=== PATIENT | male | born 1950 | race African-American/Black ===

== ENCOUNTER 2020-03-12 10:57 | Emergency (ER) | payer MEDICARE, MEDICAID ==
[~2020-03-12] VITALS: Ht 177.8 cm; Wt 112.7 kg
[~2020-03-12 10:57] MED LIST: ASPI-1265 PO; ATOR40TA PO; DOCU250C96 PO; FURO-149 PO; LISI10TA4 PO; METF850T PO; OLAN10TA19 PO; RISP0.5T3 PO
[2020-03-12 10:59] VITALS: BP 188/82
--- NOTE | 2020-03-12 11:26 | NUR ---
PT CAME IN TO GET REFILL ON MEDACATIONS NORCO 5/325 IBU 400MG CLINDAMYCIN 300MG
[2020-03-12] MEDS ORDERED: HYDROcodone/acetaminophen 5mg/325mg tablet PO ONE (11:55)
[2020-03-12] MEDS ORDERED: HYDR-3965 PO (11:59)
== END 2020-03-12 12:44 | disposition home or self-care (01) ==
LOC: ER 10:58
DX: K08.89 Other specified disorders of teeth and supporting structures (principal); I25.10 Atherosclerotic heart disease of native coronary artery without angina pectoris; I25.2 Old myocardial infarction; J44.9 Chronic obstructive pulmonary disease, unspecified; E11.9 Type 2 diabetes mellitus without complications; Z86.73 Personal history of transient ischemic attack (TIA), and cerebral infarction without residual deficits; Z98.890 Other specified postprocedural states; Z56.0 Unemployment, unspecified; Z60.2 Problems related to living alone; Z88.2 Allergy status to sulfonamides; Z88.5 Allergy status to narcotic agent; Z88.6 Allergy status to analgesic agent; Z88.8 Allergy status to other drugs, medicaments and biological substances; Z79.82 Long term (current) use of aspirin; Z79.899 Other long term (current) drug therapy; Z76.0 Encounter for issue of repeat prescription
CPT/HCPCS: 99281

== ENCOUNTER 2021-05-25 14:31 | Emergency (ER) | payer BC, MEDICAID ==
[~2021-05-25] VITALS: Ht 172.7 cm; Wt 100.0 kg
[~2021-05-25 14:31] MED LIST changes: +LISI10TA27 PO; -LISI10TA4 PO; -OLAN10TA19 PO; +OLAN10TA73 PO; -RISP0.5T3 PO; +RISP0.5T65 PO
[2021-05-25 14:40] VITALS: BP 138/103
[2021-05-25] MEDS ORDERED: LANTUS SQ (15:28)
[2021-05-25] MEDS ORDERED: METF-516 PO (15:28)
== END 2021-05-25 15:43 | disposition home or self-care (01) ==
LOC: ER 14:31
DX: E11.65 Type 2 diabetes mellitus with hyperglycemia (principal); I25.10 Atherosclerotic heart disease of native coronary artery without angina pectoris; I25.2 Old myocardial infarction; J44.9 Chronic obstructive pulmonary disease, unspecified; Z76.0 Encounter for issue of repeat prescription; Z86.73 Personal history of transient ischemic attack (TIA), and cerebral infarction without residual deficits; Z98.890 Other specified postprocedural states; Z60.2 Problems related to living alone; Z56.0 Unemployment, unspecified; Z91.011 Allergy to milk products; Z88.2 Allergy status to sulfonamides; Z88.0 Allergy status to penicillin; Z88.5 Allergy status to narcotic agent; Z88.8 Allergy status to other drugs, medicaments and biological substances; Z79.82 Long term (current) use of aspirin; Z79.4 Long term (current) use of insulin; Z79.899 Other long term (current) drug therapy
CPT/HCPCS: 82948; 99283

== ENCOUNTER 2021-11-21 11:13 | Inpatient (IN) | payer OTHER, BC, MEDICAID ==
[~2021-11-21] VITALS: Ht 177.8 cm; Wt 104.4 kg
[~2021-11-21 11:13] MED LIST changes: +METF-516 PO
[2021-11-21 11:58] LABS: BASOPHILS # (AUTO) 0.1 X10'3 (0-0.2); BASOPHILS % (AUTO) 1.2 % (0-1); EOSINOPHILS % (AUTO) 0.2 % (0-6); HEMATOCRIT 48.8 % (42.0-52.0); LYMPHOCYTES # (AUTO) 0.3 X10'3 (1.1-4.8); LYMPHOCYTES % (AUTO) 6.8 % (21-51); MEAN CORPUSCULAR HEMOGLOBIN 29.1 PG (27.0-31.0); MEAN CORPUSCULAR HGB CONC 32.8 g/dL (33.0-36.5); MEAN CORPUSCULAR VOLUME 88.7 FL (78-98); MEAN PLATELET VOLUME 9.4 FL (7.4-10.4); MONOCYTES % (AUTO) 21.8 % (2-12); NEUTROPHILS # (AUTO) 3.2 X10'3 (1.8-7.7); PLATELET COUNT 198 X10'3 (140-440); RED CELL DISTRIBUTION WIDTH 13.3 % (11.5-14.5); WHITE BLOOD COUNT 4.5 X10'3 (4.5-11.0)
[2021-11-21 12:16] LABS: ALANINE AMINOTRANSFERASE 14 U/L (12-78); ALKALINE PHOSPHATASE 128 IU/L (46-116); ANION GAP 9 (8-16); ASPARTATE AMINO TRANSFERASE 15 U/L (10-37); BILIRUBIN,TOTAL 0.4 MG/DL (0.1-1.0); BLOOD UREA NITROGEN 13 MG/DL (7-18); BUN/CREATININE RATIO 10.1 (5.4-32.0); CHLORIDE 106 MMOL/L (99-107); CREATININE 1.29 MG/DL (0.60-1.10); GLUCOSE 142 MG/DL (70-104); POTASSIUM 3.5 MMOL/L (3.5-5.1); SODIUM 144 MMOL/L (135-145); TOTAL CARBON DIOXIDE 29.4 MMOL/L (24-32); eGFR 66 ML/MIN
[2021-11-21 12:44] LABS: PLATELET ESTIMATE NORMAL; TOTAL CELLS COUNTED 100
[2021-11-21] MEDS ORDERED: metoprolol tartrate 1mg/ml inj IV ONE ×2 (14:00→19:05)
[2021-11-21] MEDS ORDERED: HYDROcodone/acetaminophen 5mg/325mg tablet PO PRN (15:00)
[2021-11-21] MEDS ORDERED: morphine 2 MG/ML inj. syringe IV PRN (15:00)
[2021-11-21] MEDS ORDERED: potassium CL 10mEq/100ml bag 100 ML IV PRN (15:00)
[2021-11-21] MEDS ORDERED: POTASSIUM BICARB 20meq eff tab 20 MEQ TABLET.EFF PO PRN ×2 (15:00)
[2021-11-21] MEDS ORDERED: magnesium 4gm in 100ml NS 100 ML IV PRN (15:00)
[2021-11-21] MEDS ORDERED: magnesium 2GM in 50ml NS 50 ML IV PRN (15:00)
[2021-11-21] MEDS ORDERED: magnesium Cl slow-release 64mg tablet PO PRN (15:00)
[2021-11-21 15:41] LABS: MAGNESIUM 1.6 MG/DL (1.5-2.4)
--- NOTE | 2021-11-21 15:42 | NUR ---
Multiple unsuccesful attempts at IV access. Ultrasound IV requested.
[2021-11-21 15:43] LABS: POTASSIUM 3.4 MMOL/L (3.5-5.1)
[2021-11-21] MEDS: normal saline 1000ml 1,000 ML IV SCH (16:09)
--- NOTE | 2021-11-21 19:16 | NUR ---
Patient had elevated blood pressure coming on shift. Dr. Patel notified and given order for IV push of Lopressor.
[2021-11-21 19:37] VITALS: BP 173/93
[2021-11-21] MEDS: K and/or MAG REPLACEMENT MC SCH (20:00)
[2021-11-21] MEDS: docusate sod 100mg capsule PO SCH (20:58)
[2021-11-21 22:00] VITALS: BP 164/94
[2021-11-22] MEDS: normal saline 1000ml 1,000 ML IV SCH ×3 (01:03→19:35)
[2021-11-22 02:00] VITALS: BP 182/93
[2021-11-22] MEDS ORDERED: hydrALAZINE 20mg/ml inj. IV PRN (02:45)
--- NOTE | 2021-11-22 02:47 | NUR ---
Patient resting quietly, 0200 BP 182/93, denies s/s. Patient received Lopressor 5mg IVP x2 in ED for HTN. No PRN meds ordered for blood pressure. RN contacted Dr Patel and order received for PRN hydralazine for SBP >170 DBP >100. Order entered.
[2021-11-22 06:00] VITALS: BP 151/77
--- NOTE | 2021-11-22 06:41 | NUR ---
Patient in room PCU 3023. I have received report from SUNITHA Jay and had the opportunity to ask questions and assume patient care.
[2021-11-22 06:46] LABS: EOSINOPHILS % (AUTO) 0 % (0-6); HEMATOCRIT 47.2 % (42.0-52.0); HEMOGLOBIN 15.7 g/dl (14.0-17.9); MEAN CORPUSCULAR HEMOGLOBIN 29.8 PG (27.0-31.0); MEAN CORPUSCULAR HGB CONC 33.2 g/dL (33.0-36.5); MEAN CORPUSCULAR VOLUME 89.5 FL (78-98); MEAN PLATELET VOLUME 9.4 FL (7.4-10.4); MONOCYTES # (AUTO) 0.8 X10'3 (0-0.9); MONOCYTES % (AUTO) 28.6 % (2-12); NEUTROPHILS % (AUTO) 34.4 % (42-75); PLATELET COUNT 156 X10'3 (140-440); RED BLOOD COUNT 5.27 X10'6 (4.70-6.10); RED CELL DISTRIBUTION WIDTH 13.4 % (11.5-14.5); WHITE BLOOD COUNT 2.8 X10'3 (4.5-11.0)
[2021-11-22 06:56] LABS: ALBUMIN 3.2 G/DL (3.4-5.0); ANION GAP 14 (8-16); BLOOD UREA NITROGEN 14 MG/DL (7-18); BUN/CREATININE RATIO 13.2 (5.4-32.0); CALCIUM 8.4 MG/DL (8.5-10.1); CHLORIDE 108 MMOL/L (99-107); CREATININE 1.06 MG/DL (0.60-1.10); GLUCOSE 109 MG/DL (70-104); MAGNESIUM 1.7 MG/DL (1.5-2.4); POTASSIUM 3.7 MMOL/L (3.5-5.1); SODIUM 144 MMOL/L (135-145); TOTAL CARBON DIOXIDE 22.2 MMOL/L (24-32); eGFR 83 ML/MIN
[2021-11-22 07:40] LABS: PLATELET ESTIMATE NORMAL; TOTAL CELLS COUNTED 100
[2021-11-22] MEDS: K and/or MAG REPLACEMENT MC SCH ×2 (08:00→19:03)
[2021-11-22 08:31] LABS: HEMOGLOBIN A1C 7.2 % (4.5-6.2)
[2021-11-22] MEDS: docusate sod 100mg capsule PO SCH ×2 (09:17→19:31)
[2021-11-22 11:00] VITALS: BP 166/79
[2021-11-22] MEDS: atorvastatin 20mg tablet PO SCH (12:02)
[2021-11-22] MEDS: lisinopril 10 MG tablet PO SCH (12:03)
[2021-11-22 15:00] VITALS: BP 162/94
[2021-11-22 18:00] VITALS: BP 158/93
--- NOTE | 2021-11-22 18:11 | NUR ---
Problems reprioritized. Patient report given, questions answered & plan of care reviewed with SUNITHA Jay.
[2021-11-22] MEDS: OLANZapine 2.5MG tablet PO SCH (19:32)
[2021-11-22 22:00] VITALS: BP 134/92
[2021-11-23 02:00] VITALS: BP 155/94
--- NOTE | 2021-11-23 04:53 | NUR ---
Per cable television installer patient had 19 beats VTach, patient currently sleeping and in no distress. Dr Patel contacted and order for magnesium oxide 400mg BID received and entered.
[2021-11-23 06:00] VITALS: BP 173/96
--- NOTE | 2021-11-23 06:00 | NUR ---
Patient in room PCU 3023. I have received report from Misty HLETON and had the opportunity to ask questions and assume patient care.
[2021-11-23 06:04] LABS: HEMATOCRIT 48.7 % (42.0-52.0); HEMOGLOBIN 15.6 g/dl (14.0-17.9); MEAN CORPUSCULAR HEMOGLOBIN 29.3 PG (27.0-31.0); MEAN CORPUSCULAR HGB CONC 32.1 g/dL (33.0-36.5); MEAN CORPUSCULAR VOLUME 91.3 FL (78-98); MEAN PLATELET VOLUME 9.7 FL (7.4-10.4); PLATELET COUNT 131 X10'3 (140-440); RED BLOOD COUNT 5.33 X10'6 (4.70-6.10); WHITE BLOOD COUNT 2.9 X10'3 (4.5-11.0)
[2021-11-23 06:19] LABS: ALBUMIN 2.9 G/DL (3.4-5.0); ANION GAP 11 (8-16); BLOOD UREA NITROGEN 15 MG/DL (7-18); BUN/CREATININE RATIO 14.4 (5.4-32.0); CALCIUM 8.2 MG/DL (8.5-10.1); CHLORIDE 107 MMOL/L (99-107); CREATININE 1.04 MG/DL (0.60-1.10); GLUCOSE 90 MG/DL (70-104); MAGNESIUM 1.8 MG/DL (1.5-2.4); POTASSIUM 3.4 MMOL/L (3.5-5.1); SODIUM 142 MMOL/L (135-145); TOTAL CARBON DIOXIDE 23.7 MMOL/L (24-32); eGFR 85 ML/MIN
[2021-11-23] MEDS: normal saline 1000ml 1,000 ML IV SCH (07:00)
[2021-11-23 07:16] LABS: PLATELET ESTIMATE DECREASED; TOTAL CELLS COUNTED 100
[2021-11-23] MEDS ORDERED: magnesium oxide 400mg tablet PO SCH (08:00)
[2021-11-23] MEDS: atorvastatin 20mg tablet PO SCH (08:21)
[2021-11-23] MEDS: docusate sod 100mg capsule PO SCH (08:21)
[2021-11-23] MEDS: lisinopril 10 MG tablet PO SCH (08:22)
[2021-11-23] MEDS: OLANZapine 2.5MG tablet PO SCH (08:22)
[2021-11-23] MEDS ORDERED: aspirin 325mg tablet PO SCH (08:30)
[2021-11-23] MEDS: K and/or MAG REPLACEMENT MC SCH (08:31)
[2021-11-23 11:00] VITALS: BP 151/77
[2021-11-23 11:04] LABS: CHOL/HDL RATIO 4.6 (0.00-4.99); CHOLESTEROL 170 MG/DL (0-200); HDL CHOLESTEROL 37 MG/DL (35-60); LDL CHOLESTEROL 100 MG/DL (50-100); TRIGLYCERIDES 111 MG/DL (20-135)
--- NOTE | 2021-11-23 11:14 | NUR ---
Noted pt with T2DM, well controlled with A1c 7.2%. Attempted visit with pt at bedside however pt sleeping. Written DM education with RD contact information placed at bedside. Will remain available. Addendum: 11/23/21 at [address] Amended: Links added.
--- NOTE | 2021-11-23 12:42 | NUR ---
Patient placed in wheelchair for MRI
[2021-11-23 15:00] VITALS: BP 154/68
[2021-11-23] MEDS ORDERED: ASPI81TA48 PO (15:38)
[2021-11-23] MEDS ORDERED: ATOR20TA66 PO (15:38)
[2021-11-23] MEDS ORDERED: POTA-207 PO (15:58)
--- NOTE | 2021-11-23 16:31 | NUR ---
Patient changed into own clothes, IV D/C'd, patient given hospital socks, [employer] called, security called to return his belongings. Patient walked to the front by aide.
== END 2021-11-23 16:22 | disposition home or self-care (01) | DRG 69 ==
LOC: ER 11:14 → ED HOLD 15:05 → PCU 3S 19:20
PROVIDERS: ADMIT Internal Medicine; ATTEND Internal Medicine
DX: G45.9 Transient cerebral ischemic attack, unspecified (principal); I16.0 Hypertensive urgency; E11.9 Type 2 diabetes mellitus without complications; E78.5 Hyperlipidemia, unspecified; F17.210 Nicotine dependence, cigarettes, uncomplicated; I10 Essential (primary) hypertension; E87.6 Hypokalemia; Z60.2 Problems related to living alone; I25.10 Atherosclerotic heart disease of native coronary artery without angina pectoris; J44.9 Chronic obstructive pulmonary disease, unspecified; Z79.84 Long term (current) use of oral hypoglycemic drugs; Z86.73 Personal history of transient ischemic attack (TIA), and cerebral infarction without residual deficits; I25.2 Old myocardial infarction; Z91.14 Patient's other noncompliance with medication regimen; Z88.5 Allergy status to narcotic agent; Z88.0 Allergy status to penicillin; Z88.2 Allergy status to sulfonamides; Z88.8 Allergy status to other drugs, medicaments and biological substances; Z91.011 Allergy to milk products; Z56.0 Unemployment, unspecified
CPT/HCPCS: 36415; 70450; 70551; 71045; 80048; 80053; 80061; 82948; 83036; 83735; 83880; 84132; 84484; 85007; 85025; 87081; 93005; 93306; 97116; 97161; 97530; 99285; G0378; J0360; J3490; J7030